=== PATIENT | female | born 1935 | race Caucasian/White ===

== ENCOUNTER 2018-04-25 04:56 | Emergency (ER) | payer MEDICARE ==
[~2018-04-25] VITALS: Ht 157.5 cm; Wt 74.0 kg
[~2018-04-25 04:56] MED LIST: ASPIRIN EC81 MG PO; ATENOLOL25 MG PO; CALCIUM/D250 MG PO; FLEXERIL OR; FLEXERIL10 MG PO; FLUTICASONE50 MCG; KLOR-CON 1010 MEQ PO; LISINOPRIL2.5 MG PO; LISINOPRIL40 MG PO; LORATADINE10 M1 PO; NAPROSYN500 MG PO; PENTOXIFYLLI400 M1 PO
[2018-04-25] MEDS ORDERED: KEFLEX500 M1 PO (05:22)
[2018-04-25] MEDS ORDERED: IBUPROFEN600 MG PO (05:22)
[2018-04-25 06:30] VITALS: BP 130/78
== END 2018-04-25 06:20 | disposition home or self-care (01) ==
LOC: ED 04:56
DX: L03.032 Cellulitis of left toe (principal); I25.10 Atherosclerotic heart disease of native coronary artery without angina pectoris; Z95.5 Presence of coronary angioplasty implant and graft

== ENCOUNTER 2022-11-23 08:41 | Emergency (ER) | payer MEDICARE, MEDICAID ==
[~2022-11-23] VITALS: Ht 157.5 cm; Wt 74.4 kg
[~2022-11-23 08:41] MED LIST changes: +IBUPROFEN600 MG PO; +KEFLEX500 M1 PO
[2022-11-23 08:46] VITALS: BP 174/107
[2022-11-23 09:14] LABS: BASO% 0.5 % (0-3); EOS% 1.2 % (0-8); HEMATOCRIT 43.8 % (37.0-47.0); HEMOGLOBIN 14.4 g/dl (12.0-16.0); IMMATURE GRANULOCYTES 0.4 % (0.0-5.0); LYMPH% 12.7 % (15-41); MEAN CORPUSCULAR HGB 30.3 pG CALC (26.0-32.0); MEAN CORPUSCULAR HGB CONC 32.9 g/dL CAL (32.0-36.0); MONO% 4.4 % (2-13); NEUT# 6.83 thou/uL (2.00-7.15); NEUT% 80.8 % (42-76); RED BLOOD COUNT 4.76 mill/uL (4.20-5.60); RED CELL DISTRI WIDTH 12.8 % (11.5-15.5)
[2022-11-23 09:25] LABS: ALBUMIN 3.6 g/dL (3.2-5.0); BILIRUBIN, TOTAL 0.9 mg/dL (0.02-1.3); CREATININE 1.1 mg/dL (0.5-1.0); POTASSIUM 3.8 mmol/l (3.5-5.1); TOTAL PROTEIN 6.5 g/dL (6.3-8.2)
[2022-11-23] MEDS ORDERED: MEMANTINE HYDROC5 MG PO (10:36)
[2022-11-23] MEDS ORDERED: NAPROXEN500 MG PO (10:38)
[2022-11-23 11:55] VITALS: BP 174/107
== END 2022-11-23 11:59 | disposition short-term general hospital (02) ==
LOC: ED 08:41
PROVIDERS: Family Medicine
DX: S72.145A Nondisplaced intertrochanteric fracture of left femur, initial encounter for closed fracture (principal); I25.10 Atherosclerotic heart disease of native coronary artery without angina pectoris; W19.XXXA Unspecified fall, initial encounter; Z95.5 Presence of coronary angioplasty implant and graft

== ENCOUNTER 2022-11-26 18:41 | Emergency (ER) | payer MEDICARE, MEDICAID ==
[~2022-11-26] VITALS: Ht 157.5 cm; Wt 74.0 kg
[~2022-11-26 18:41] MED LIST changes: +MEMANTINE HYDROC5 MG PO; +NAPROXEN500 MG PO
[2022-11-26 18:50] VITALS: BP 116/49
[2022-11-26 19:01] VITALS: BP 107/39
[2022-11-26 19:16] VITALS: BP 127/52
[2022-11-26 19:22] LABS: URINE BILIRUBIN - DIPSTICK NEGATIVE (NEGATIVE); URINE COLOR YELLOW; URINE GLUCOSE - DIPSTICK NEGATIVE (NEGATIVE); URINE KETONE Trace mg/dL (NEGATIVE); URINE PH 5.5 (4.5-8.0); URINE PROTEIN - DIPSTICK 30 mg/dL (NEG-TRACE); URINE SPECIFIC GRAVITY >=1.030; URINE UROBILINOGEN - DIPSTICK 0.2 E.U./dL (0.2)
[2022-11-26 19:23] LABS: URINE BLOOD DIPSTICK MODERATE (NEGATIVE); URINE LEUK ESTERASE NEGATIVE (NEGATIVE); URINE NITRITE - DIPSTICK NEGATIVE (Negative)
[2022-11-26 19:29] LABS: URINE SQUAMOUS EPITHELIAL CELL MODERATE EPI/hpf (0-FEW)
[2022-11-26 19:31] VITALS: BP 123/45
[2022-11-26 19:50] VITALS: BP 127/52
[2022-11-26] MEDS ORDERED: CIPROFLOXACN500 MG PO (20:07)
== END 2022-11-26 19:50 | disposition home or self-care (01) ==
LOC: ED 18:41
PROVIDERS: Family Medicine
DX: Z46.6 Encounter for fitting and adjustment of urinary device (principal); N39.0 Urinary tract infection, site not specified; I25.10 Atherosclerotic heart disease of native coronary artery without angina pectoris; Z98.890 Other specified postprocedural states; Z95.5 Presence of coronary angioplasty implant and graft

== ENCOUNTER 2023-11-24 18:15 | Emergency (ER) | payer MEDICARE ==
[2023-11-24] VITALS (9 sets, daily range): BP systolic 97–135; BP diastolic 36–101
[~2023-11-24] VITALS: Ht 157.5 cm; Wt 81.6 kg
[~2023-11-24 18:15] MED LIST changes: +CIPROFLOXACN500 MG PO; +KETOROLAC TROMETHAMINE 30 MG/ML SDV IM ONE
[2023-11-24] MEDS ORDERED: KETOROLAC TROMETHAMINE 30 MG/ML SDV IM ONE (18:25)
== END 2023-11-24 20:36 | disposition home or self-care (01) ==
LOC: ED 18:15
DX: M25.552 Pain in left hip (principal); I25.10 Atherosclerotic heart disease of native coronary artery without angina pectoris